=== PATIENT | female | born 1965 | race African-American/Black ===

== ENCOUNTER 2016-10-15 20:49 | Emergency (ER) | payer SELFPAY ==
[~2016-10-15] VITALS: Ht 175.3 cm; Wt 154.2 kg
[~2016-10-15 20:49] MED LIST: AMLO2.5T PO; AZIT250T PO; CRESTOR10 MG PO; LOSA25TA4 PO; PRED20TA PO; PROVENTIL HFA6.7 GM IH
--- NOTE | 2016-10-15 21:26 | ED.ADGEN ---
Past Medical History Past Medical History: Asthma, Hypertension Additional Past Medical Histor: GASTRITIS, Past Surgical History: Tubal ligation Alcohol Use: Rarely Drug Use: None Adult General Chief Complaint Chief Complaint: HYPERTENSION HPI HPI Patient is a 51 year old woman, with history of hypertension, who presents to the emergency department with complaint of fluctuating blood pressures, right- sided headache, cough, with vomiting today. Patient states that she stopped taking her blood pressure medication about a month ago, because "I was taking and taking it and it wasn't working". She states that her blood pressures measured at home today were 200s over 100s, blood pressure upon arrival to the ED initially was 209/99, repeat is 164/77. Patient states that her brother had a heart attack last week, which has made her concerned about her blood pressures , and prompted her to come to the ED today after she began experiencing a right- sided headache for the past several days. She states she has mild blurry vision associated with headache, although currently is resolved, the headache does come and go. Denies any focal weakness numbness or tingling, states that she's had coughing over the past several days with rhinorrhea, and did have several episodes of emesis today, denies any abdominal pain, any nausea, any chest pain or shortness of breath. States that she's noted increasing swelling in her lower extremities as well over the last month since she has stopped taking her medications. Denies any recent travel or surgery, any unilateral leg swelling, history of PE or DVT. Her primary care provider is Dr. Crews, who is not aware of her complaints were of her medication noncompliance. Review of Systems Review of Systems Constitutional: Denies fever or chills. [] Eyes: Denies change in visual acuity. [] HENT: Nasal congestion, no sore throat. [] Respiratory: Denies shortness of breath, complaining of cough. Cardiovascular: Denies chest pain or edema. [] GI: Denies abdominal pain, nausea, vomiting, bloody stools or diarrhea. [] : Denies dysuria. [] Musculoskeletal: Denies back pain or joint pain. [] Integument: Denies rash. [] Neurologic: Denies focal weakness or sensory changes. [] Right-sided headache associated mild blurry vision. Endocrine: Denies polyuria or polydipsia. [] Lymphatic: Denies swollen glands. [] Psychiatric: Denies depression or anxiety. [] Current Medications Current Medications Current Medications Medications (Trade) Dose Ordered Sig/Jorge Luis Start Time Stop Time Status Last Admin Dose Admin Acetaminophen (Tylenol) 650 mg 1X ONCE 10/15/16 21:45 10/15/16 21:46 DC 10/15/16 21:35 650 MG Allergies Allergies Allergies Coded Allergies Type Severity Reaction Last Updated Verified No Known Medication Allergies Allergy Unknown 03/07/14 No Physical Exam Physical Exam Constitutional: Well developed, well nourished, morbidly obese, non-toxic appearance. [] HENT: Normocephalic, atraumatic, bilateral external ears normal, oropharynx moist, no oral exudates, nose normal. [] Eyes: PERRLA, EOMI, conjunctiva normal, no discharge. [] Neck: Normal range of motion, no tenderness, supple, no stridor. [] Cardiovascular:Heart rate regular rhythm, no murmur, S1, S2, rubs or gallops. [] Lungs & Thorax: Bilateral breath sounds clear to auscultation, no wheezing, rhonchi, rales. No chest wall tenderness or crepitus. [] Abdomen: Bowel sounds normal, soft, obese, no tenderness, no masses, no pulsatile masses. [] Skin: Warm, dry, no erythema, no rash. [] Back: No tenderness, no CVA tenderness. [] Extremities: No tenderness, no cyanosis, no clubbing, ROM intact, 2+ pitting edema bilaterally. Neurologic: Alert and oriented X 3, normal motor function, normal sensory function, no focal deficits noted. [] Psychologic: Affect normal, judgement normal, mood normal. [] Current Patient Data Vital Signs Vital Signs Date Time Temp Pulse Resp B/P Pulse Ox O2 Delivery O2 Flow Rate FiO2 10/15/16 21:15 98.2 87 20 169/71 100 Room Air 98.2 Lab Values Laboratory Tests Test 10/15/16 21:40 10/15/16 22:05 Urine Collection Type Unknown Urine Color Yellow Urine Clarity Clear Urine pH 5.5 Urine Specific [place] 1.025 Urine Protein Negativemg/dL (NEG-TRACE) Urine Glucose (UA) Negativemg/dL (NEG) Urine Ketones (Stick) Negativemg/dL (NEG) Urine Blood Negative (NEG) Urine Nitrite Negative (NEG) Urine Bilirubin Negative (NEG) Urine Urobilinogen Dipstick 1.0mg/dL (0.2 mg/dL) Urine Leukocyte Esterase Negative (NEG) Urine RBC 0/HPF (0-2) Urine WBC Occ/HPF (0-4) Urine Squamous Epithelial Cells Mod/LPF Urine Bacteria Few/HPF (0-FEW) Urine Mucus Marked/LPF Urine Opiates Screen Neg (NEG) Urine Methadone Screen Neg (NEG) Urine Barbiturates Neg (NEG) Urine Phencyclidine Screen Neg (NEG) Urine Amphetamine/Methamphetamine Neg (NEG) Urine Benzodiazepines Screen Neg (NEG) Urine Cocaine Screen Neg (NEG) Urine Cannabinoids Screen Neg (NEG) Urine Ethyl Alcohol Neg (NEG) White Blood Count 7.1x10^3/uL (4.0-11.0) Red Blood Count 4.92x10^6/uL (3.50-5.40) Hemoglobin 13.2g/dL (12.0-15.5) Hematocrit 41.3% (36.0-47.0) Mean Corpuscular Volume 84fL (79-100) Mean Corpuscular Hemoglobin 27pg (25-35) Mean Corpuscular Hemoglobin Concent 32g/dL (31-37) Red Cell Distribution Width 14.7% (11.5-14.5) H Platelet Count 209x10^3/uL (140-400) Neutrophils (%) (Auto) 51% (31-73) Lymphocytes (%) (Auto) 40% (24-48) Monocytes (%) (Auto) 6% (0-9) Eosinophils (%) (Auto) 2% (0-3) Basophils (%) (Auto) 1% (0-3) Neutrophils # (Auto) 3.6x10^3uL (1.8-7.7) Lymphocytes # (Auto) 2.8x10^3/uL (1.0-4.8) Monocytes # (Auto) 0.4x10^3/uL (0.0-1.1) Eosinophils # (Auto) 0.2x10^3/uL (0.0-0.7) Basophils # (Auto) 0.1x10^3/uL (0.0-0.2) Sodium Level 143mmol/L (136-145) Potassium Level 3.9mmol/L (3.5-5.1) Chloride Level 105mmol/L (98-107) Carbon Dioxide Level 31mmol/L (21-32) Anion Gap 7 (6-14) Blood Urea Nitrogen 13mg/dL (7-20) Creatinine 1.0mg/dL (0.6-1.0) Estimated GFR (Cockcroft-Gault) 70.5 BUN/Creatinine Ratio 13 (6-20) Glucose Level 117mg/dL (70-99) H Calcium Level 8.9mg/dL (8.5-10.1) Total Bilirubin 0.2mg/dL (0.2-1.0) Aspartate Amino Transferase (AST) 14U/L (15-37) L Alanine Aminotransferase (ALT) 18U/L (14-59) Alkaline Phosphatase 98U/L (46-116) Troponin I Quantitative < 0.017ng/mL (0.000-0.055) SJ-Tkk-[id number]-Type Natriuretic Peptide 120pg/mL (0-124) Total Protein 7.9g/dL (6.4-8.2) Albumin 3.3g/dL (3.4-5.0) L Albumin/Globulin Ratio 0.7 (1.0-1.7) L Laboratory Tests 10/15/16 22:05 Laboratory Tests 10/15/16 22:05 EKG EKG EC: Sinus rhythm, heart rate 87 bpm, left axis deviation, QTC of 448, UT 166, QRS of 90, no ST elevations or depressions, contour abnormality is as stated with left axis deviation, otherwise abnormalities identified. Attempted to compare to previous ECG, however cardio room service food server is inaccessible at this time unable to compare prior. As interpreted by me. Radiology/Procedures Radiology/Procedures [] [facility] [address] [place] [address] IMAGING REPORT Signed PATIENT: MARGARITA WHITING ACCOUNT: [id number] : 1965 LOCATION: ER AGE: 51 SEX: F EXAM STATUS: REG ER ORD. PHYSICIAN: REN BOWMAN DO REASON: SIMPSON/HTN PROCEDURE: HEAD WO CONTRAST PROCEDURE CT head without contrast. HISTORY Right-sided headache and high blood pressure, cough and vomiting today TECHNIQUE Noncontrast CT imaging was performed of the head. Exposure: One or more of the following individualized dose reduction techniques were utilized for this exam: 1. Automated exposure control. 2. Adjustment of the mA and/or kV according to patient size. 3. Use of iterative reconstruction technique. COMPARISON 10/30/2015 FINDINGS No acute intracranial hemorrhage is identified. There is no intra-axial mass effect, midline shift, extra-axial fluid collection. Stevens-white differentiation of the major vascular territories is maintained. No acute calvarial abnormality is identified. Visualized paranasal sinuses and the mastoid air cells are aerated. IMPRESSION 1. No acute intracranial abnormality is identified. Electronically signed by: Mauro Bales MD (Oct 15, 2016 21:51:04) DICTATED and SIGNED BY: LUNA BALES MD DATE: 10/15/162150 CC: JOZEF CREWS MD; REN BOWMAN DO ~ Chest x-ray: Normal cardiopulmonary silhouette, no infiltrates, no effusions, no pneumothorax, no soft tissue or bony abnormalities identified. As interpreted by me. Course & Med Decision Making Course & Med Decision Making Pertinent Labs and Imaging studies reviewed. (See chart for details) Patient is denying any new or different symptoms at this time, she is more significant general evaluation after the recent health events affecting her brother, and with recurrence of her chronic headaches which she has previously been seen. Patient received Tylenol in the emergency department, on reevaluation states her headache is nearly fully resolved. CT of the head obtained, due to the patient's hypertensive report, and persistent symptoms, which was also unremarkable. Chest x-ray, ECG, and laboratory studies aside from mild hyperglycemia with glucose of 117 were all unremarkable. I did discuss these findings with patient, there is no indication there is acutely concerning process in place at this time, we had a lengthy discussion regarding the importance of taking medications on a regular basis to prevent development of serious medical conditions. Patient voices understanding, repeat blood pressures this time is 132/69, heart rate is in the 80s, oxygen saturation is 99 % on room air, respiratory rate is 18 and unlabored. Patient states that she'll be able to follow-up with her primary care provider next week, states that she does not feel the losartan which is previously he was beneficial her, therefore after discussion a prescription for hydrochlorothiazide 12.5 mg was written, to be started by the patient, and to be followed up on with her primary care provider in the next 5-7 days. We also discussed concerning symptoms that prompt return to the emergency department. Patient ambulating with difficulty in the ED, voiced understanding and agreement with plan, was discharged home in stable condition with plan as above. Dragon Disclaimer Dragon Disclaimer This electronic medical record was generated, in whole or in part, using a voice recognition dictation system. Departure Impression: Primary Impression: Hypertension Additional Impressions: Head ache Noncompliance with medications Disposition: HOME, SELF-CARE Condition: IMPROVED Scripts Hydrochlorothiazide (Hydrochlorothiazide Tablet)12.5 Mg Uymqxa89.5 Mg PO DAILY DIURETIC #20 TAB Ref 0 Prov:REN BOWMAN DO 10/15/16 Problem Qualifiers Primary Impression: Hypertension Hypertension type: unspecified secondary hypertension Qualified Code: I15.9 - Secondary hypertension, unspecified Additional Impressions: Head ache Headache type: unspecified Headache chronicity pattern: episodic headache Intractability: not intractable Qualified Code: R51 - Headache REN BOWMAN DO Oct 15, 2016 21:26
[2016-10-15] MEDS ORDERED: ACETAMINOPHEN 325 MG TABLET. PO ONE (21:45)
[2016-10-15 21:49] LABS: BILIRUBIN,URINE NEGATIVE (NEG); GLUCOSE,URINE NEGATIVE (NEG); NITRITE,URINE NEGATIVE (NEG); PH,URINE 5.5; PROTEIN,URINE NEGATIVE (NEG-TRACE)
--- NOTE | 2016-10-15 21:52 | RAD ---
PROCEDURE CT head without contrast. HISTORY Right-sided headache and high blood pressure, cough and vomiting today TECHNIQUE Noncontrast CT imaging was performed of the head. Exposure: One or more of the following individualized dose reduction techniques were utilized for this exam: 1. Automated exposure control. 2. Adjustment of the mA and/or kV according to patient size. 3. Use of iterative reconstruction technique. COMPARISON 10/30/2015 FINDINGS No acute intracranial hemorrhage is identified. There is no intra-axial mass effect, midline shift, extra-axial fluid collection. Stevens-white differentiation of the major vascular territories is maintained. No acute calvarial abnormality is identified. Visualized paranasal sinuses and the mastoid air cells are aerated. IMPRESSION 1. No acute intracranial abnormality is identified. Electronically signed by: Mauro Reeder MD (Oct 15, 2016 21:51:04)
[2016-10-15 21:55] LABS: BARBITURATES NEG (NEG); BENZODIAZEPINES NEG (NEG); CANNABINOIDS NEG (NEG); COCAINE NEG (NEG); ETHANOL, URINE NEG (NEG); METHADONE NEG (NEG); OPIATES NEG (NEG); PHENCYCLIDINE NEG (NEG)
[2016-10-15 21:59] LABS: BACTERIA,URINE FEW /HPF (0-FEW); RBC,URINE 0 /HPF (0-2); SQUAMOUS EPITHELIAL CELL,UR MOD /LPF; WBC,URINE OCC /HPF (0-4)
[2016-10-15 22:18] LABS: BASO # 0.1 x10^3/uL (0.0-0.2); BASO % 1 % (0-3); EOS % 2 % (0-3); HEMATOCRIT 41.3 % (36.0-47.0); HEMOGLOBIN 13.2 g/dL (12.0-15.5); LYMPH # 2.8 x10^3/uL (1.0-4.8); LYMPH % 40 % (24-48); MEAN CORPUSCULAR HEMOGLOBIN 27 pg (25-35); MEAN CORPUSCULAR HGB CONC 32 g/dL (31-37); MEAN CORPUSCULAR VOLUME 84 fL (79-100); MONO % 6 % (0-9); NEUT % 51 % (31-73); PLATELET COUNT 209 x10^3/uL (140-400); RED BLOOD COUNT 4.92 x10^6/uL (3.50-5.40); RED CELL DISTRIBUTION WIDTH 14.7 % (11.5-14.5); WHITE BLOOD COUNT 7.1 x10^3/uL (4.0-11.0)
[2016-10-15 22:34] LABS: CALCIUM 8.9 mg/dL (8.5-10.1); GFR 70.5; POTASSIUM 3.9 mmol/L (3.5-5.1)
[2016-10-15 22:36] VITALS: BP 132/72
[2016-10-15 22:40] LABS: ALBUMIN 3.3 g/dL (3.4-5.0); ALBUMIN/GLOBULIN RATIO 0.7 (1.0-1.7); TOTAL BILIRUBIN 0.2 mg/dL (0.2-1.0); TOTAL PROTEIN 7.9 g/dL (6.4-8.2)
[2016-10-15] MEDS ORDERED: HYDR12.58 PO (22:46)
--- NOTE | 2016-10-16 11:49 | RAD ---
AP portable chest radiograph 10/15/2016 Clinical History: Cough and hypotension. An AP portable erect digital radiograph of the chest was obtained. Comparison study is dated 05/06/2016. The cardiac silhouette is borderline enlarged. The thoracic aorta is mildly tortuous. No acute pulmonary infiltrate is seen. No pleural effusion or pneumothorax is noted. Mild degenerative changes are seen involving the thoracic spine and both shoulders. Impression: No acute abnormality is seen.
--- NOTE | 2016-10-16 14:52 | EKG ---
[facility] [address] [place] [address] Test Date: 2016-10-15 Test Time: 21:34:09 Pat Name: MARGARITA WHITING Department: Room: Gender: F Blanket Weaver: : 1965 Requested By: REN BOWMAN Order Number: [id number] Reading MD: Measurements Intervals [place] Rate: 87 P: 59 TX: 156 QRS: -11 QRSD: 90 T: 14 QT: 372 QTc: 448 Interpretive Statements SINUS RHYTHM LEFTWARD AXIS NO SPECIFIC ECG ABNORMALITIES RI6.01 No previous ECG available for comparison
== END 2016-10-15 22:53 | disposition home or self-care (01) ==
LOC: ER 20:49
DX: I15.9 Secondary hypertension, unspecified (principal); R51 Headache; R05 Cough; J45.909 Unspecified asthma, uncomplicated; Z91.14 Patient's other noncompliance with medication regimen; Z98.51 Tubal ligation status
CPT/HCPCS: 36415; 70450; 71010; 80053; 81001; 83880; 84484; 85027; 93005; 99285; G0481

== ENCOUNTER 2017-02-20 00:34 | Inpatient (IN) | payer SELFPAY ==
[~2017-02-20] VITALS: Ht 172.7 cm; Wt 170.1 kg
[~2017-02-20 00:34] MED LIST changes: +HYDR12.58 PO
[2017-02-20 01:02] LABS: BILIRUBIN,URINE NEGATIVE (NEG); GLUCOSE,URINE >=1000 mg/dL (NEG); NITRITE,URINE NEGATIVE (NEG); PH,URINE 5.5; PROTEIN,URINE NEGATIVE (NEG-TRACE)
[2017-02-20 01:07] LABS: BACTERIA,URINE FEW /HPF (0-FEW); RBC,URINE 0 /HPF (0-2); SQUAMOUS EPITHELIAL CELL,UR FEW /LPF; WBC,URINE OCC /HPF (0-4)
[2017-02-20] MEDS ORDERED: IV NORMAL SALINE 1000ML BAG 1,000 ML IV ONE (01:15)
--- NOTE | 2017-02-20 01:54 | PHYS DOC ---
Past Medical History Past Medical History: Asthma, Hypertension Additional Past Medical Histor: GASTRITIS Past Surgical History: Hysterectomy, Tubal ligation Alcohol Use: Rarely Drug Use: None Adult General Chief Complaint Chief Complaint: HYPERGLYCEMIA HPI HPI Patient is a 51 year old F who presents with elevated blood sugars. Patient is an obese female with no known history of diabetes however over the past month has had increased thirst and one of her friends is diabetic therefore she checked her blood sugars tonight which were reading 400. Patient came the emergency room for further evaluation. Patient describes some blurry vision and numbness and tingling all over. Patient declines any nausea/vomiting/diarrhea or abdominal pain. Patient denies any fevers. Patient denies any chest pain or shortness of breath. Pertinent exam findings: Heart was regular rate and rhythm without murmurs Lungs are clear to auscultation bilaterally without crackles wheeze or rales Abdomen was soft nontender bowel sounds heard all 4 quadrants ED course: Patient was seen and evaluated CBC, CMP, 1 L normal saline ordered 0228: Discussed lab results the patient and updated on the plan to admit for treatment of new onset diabetes and diabetic education Pertinent results: Glucose level was 375 MDM: After reviewing the chart, CC/HPI/PMH, physical exam, [lab results], do not believe the patient is in acute DKA however has new onset diabetes and will be admitted for diabetic education and further management of her blood sugars. Review of Systems Review of Systems GEN: Elevate her blood sugars HEENT: Blurry vision CV: Denies chest pain RESP: Denies shortness of air, cough GI: Denies n/v/d NEURO: Numbness and tingling MSK: Denies weakness, joint pain/swelling Current Medications Current Medications Current Medications Medications (Trade) Dose Ordered Sig/Jorge Luis Start Time Stop Time Status Last Admin Dose Admin Sodium Chloride 1,000 ml @ 1,000 mls/hr 1X ONCE 02/20/17 01:15 02/20/17 02:14 DC 02/20/17 01:14 1,000 MLS/HR Allergies Allergies Allergies Coded Allergies Type Severity Reaction Last Updated Verified No Known Medication Allergies Allergy Unknown 03/07/14 No Physical Exam Physical Exam GEN.: No apparent distress. Alert and oriented. HEENT: Head is normocephalic, atraumatic NECK: Supple. LUNGS: CTAB. HEART: RRR, S1, S2 present. Peripheral pulses intact ABDOMEN: Soft, nontender. Positive bowel sounds. EXTREMITIES: Without any cyanosis. NEUROLOGIC: Normal speech, normal tone PSYCHIATRIC: Normal affect, normal mood. SKIN: No ulcerations Current Patient Data Vital Signs Vital Signs Date Time Temp Pulse Resp B/P (MAP) Pulse Ox O2 Delivery O2 Flow Rate FiO2 02/20/17 00:50 98.3 94 22 146/80 (102) 97 Room Air 98.3 Lab Values Laboratory Tests Test 02/20/17 00:41 02/20/17 00:45 02/20/17 02:02 Urine Collection Type Unknown Urine Color Yellow Urine Clarity Clear Urine pH 5.5 Urine Specific [place] >=1.030 Urine Protein Negative mg/dL (NEG-TRACE) Urine Glucose (UA) >=1000 mg/dL (NEG) Urine Ketones (Stick) Negative mg/dL (NEG) Urine Blood Negative (NEG) Urine Nitrite Negative (NEG) Urine Bilirubin Negative (NEG) Urine Urobilinogen Dipstick 1.0 mg/dL (0.2 mg/dL) Urine Leukocyte Esterase Negative (NEG) Urine RBC 0 /HPF (0-2) Urine WBC Occ /HPF (0-4) Urine Squamous Epithelial Cells Few /LPF Urine Bacteria Few /HPF (0-FEW) Urine Mucus Slight /LPF Glucose (Fingerstick) 396 mg/dL (70-99) H White Blood Count 6.8 x10^3/uL (4.0-11.0) Red Blood Count 4.54 x10^6/uL (3.50-5.40) Hemoglobin 12.7 g/dL (12.0-15.5) Hematocrit 37.9 % (36.0-47.0) Mean Corpuscular Volume 84 fL (79-100) Mean Corpuscular Hemoglobin 28 pg (25-35) Mean Corpuscular Hemoglobin Concent 34 g/dL (31-37) Red Cell Distribution Width 14.8 % (11.5-14.5) H Platelet Count 179 x10^3/uL (140-400) Neutrophils (%) (Auto) 49 % (31-73) Lymphocytes (%) (Auto) 42 % (24-48) Monocytes (%) (Auto) 6 % (0-9) Eosinophils (%) (Auto) 3 % (0-3) Basophils (%) (Auto) 1 % (0-3) Neutrophils # (Auto) 3.3 x10^3uL (1.8-7.7) Lymphocytes # (Auto) 2.8 x10^3/uL (1.0-4.8) Monocytes # (Auto) 0.4 x10^3/uL (0.0-1.1) Eosinophils # (Auto) 0.2 x10^3/uL (0.0-0.7) Basophils # (Auto) 0.1 x10^3/uL (0.0-0.2) Sodium Level 137 mmol/L (136-145) Potassium Level 3.6 mmol/L (3.5-5.1) Chloride Level 103 mmol/L (98-107) Carbon Dioxide Level 28 mmol/L (21-32) Anion Gap 6 (6-14) Blood Urea Nitrogen 11 mg/dL (7-20) Creatinine 0.9 mg/dL (0.6-1.0) Estimated GFR (Cockcroft-Gault) 79.6 BUN/Creatinine Ratio 12 (6-20) Glucose Level 375 mg/dL (70-99) H Calcium Level 8.7 mg/dL (8.5-10.1) Total Bilirubin 0.3 mg/dL (0.2-1.0) Aspartate Amino Transferase (AST) 12 U/L (15-37) L Alanine Aminotransferase (ALT) 17 U/L (14-59) Alkaline Phosphatase 119 U/L (46-116) H Total Protein 7.2 g/dL (6.4-8.2) Albumin 3.1 g/dL (3.4-5.0) L Albumin/Globulin Ratio 0.8 (1.0-1.7) L Lipase 135 U/L (73-393) Laboratory Tests 02/20/17 02:02 Laboratory Tests 02/20/17 02:02 EKG EKG [] Radiology/Procedures Radiology/Procedures [] Course & Med Decision Making Course & Med Decision Making Pertinent Labs and Imaging studies reviewed. (See chart for details) [] Dragon Disclaimer Dragon Disclaimer This electronic medical record was generated, in whole or in part, using a voice recognition dictation system. Departure Departure Impression: Primary Impression: Hyperglycemia Disposition: ADMITTED INPATIENT Admitting Physician: Shimon Borrego Condition: STABLE Referrals: JOZEF CROOKS MD (PCP) JANIYA GANN DO Feb 20, 2017 01:54
[2017-02-20 02:12] LABS: BASO # 0.1 x10^3/uL (0.0-0.2); BASO % 1 % (0-3); EOS % 3 % (0-3); HEMATOCRIT 37.9 % (36.0-47.0); HEMOGLOBIN 12.7 g/dL (12.0-15.5); LYMPH # 2.8 x10^3/uL (1.0-4.8); LYMPH % 42 % (24-48); MEAN CORPUSCULAR HEMOGLOBIN 28 pg (25-35); MEAN CORPUSCULAR HGB CONC 34 g/dL (31-37); MEAN CORPUSCULAR VOLUME 84 fL (79-100); MONO % 6 % (0-9); NEUT % 49 % (31-73); PLATELET COUNT 179 x10^3/uL (140-400); RED BLOOD COUNT 4.54 x10^6/uL (3.50-5.40); RED CELL DISTRIBUTION WIDTH 14.8 % (11.5-14.5); WHITE BLOOD COUNT 6.8 x10^3/uL (4.0-11.0)
[2017-02-20 02:21] LABS: CALCIUM 8.7 mg/dL (8.5-10.1); CREATININE 0.9 mg/dL (0.6-1.0); GFR 79.6; POTASSIUM 3.6 mmol/L (3.5-5.1)
[2017-02-20 02:26] LABS: ALBUMIN 3.1 g/dL (3.4-5.0); ALBUMIN/GLOBULIN RATIO 0.8 (1.0-1.7); TOTAL BILIRUBIN 0.3 mg/dL (0.2-1.0); TOTAL PROTEIN 7.2 g/dL (6.4-8.2)
[2017-02-20] MEDS: IV NORMAL SALINE 1000ML BAG 1,000 ML IV SCH ×3 (02:28→20:09)
[2017-02-20] MEDS ORDERED: ONDANSETRON PF 4 MG/2 ML VIAL. IV PRN (02:30)
[2017-02-20] MEDS ORDERED: ACETAMINOPHEN 325 MG TABLET. PO PRN (02:30)
[2017-02-20 05:52] VITALS: BP 118/78
--- NOTE | 2017-02-20 06:48 | ACF ---
Admission Forms Criteria DIABETES Clinical Indications for Admission to Inpatient Care (Place 'X' for any and all applicable criteria): Admission is indicated by presence of ALL (if I & II) or ANY ONE (if III or IV) of the following (1)(2)(3)(4): [ ]I. Diabetes is uncontrolled as indicated by ANY ONE of the following: [ ]a) Diabetic ketoacidosis as indicated by ALL of the following (8): [ ]i) Hyperglycemia (eg, plasma glucose greater than 200 mg/ dL (11.1 mmol/L)) [ ]ii) Acidosis (eg, arterial pH less than 7.30, serum bicarbonate level less than 15 mEq/L (mmol/L)) [ ]iii) Moderate ketonuria or ketonemia [ ]b) Hyperglycemic hyperosmolar state as indicated by ALL of the following(9)(10): [ ]i) Neurologic dysfunction (eg, stupor, coma, hemiparesis , seizure)(13) [ ]ii) Plasma glucose greater than 600 mg/dL (33.3 mmol/L) [ ]iii) Serum osmolality greater than 320 mOsm/kg (mmol/kg) [ ]c) Severe signs or symptoms secondary to hyperglycemia indicated by ANY ONE of the following: [ ]i) Altered mental status(10) [ ]ii) Significant hypovolemia or dehydration [ ]iii) Intractable nausea or vomiting [ ]iv) Unexplained fever or severe infection [ ]v) Severe electrolyte abnormality (eg, hypokalemia, hyperkalemia, hypernatremia) [ ]II. Management at other levels of care (Also use Diabetes: Observation Care as appropriate) is not feasible because of ANY ONE of the following: [ ]a) Condition was not adequately corrected with treatment at other levels of care. [ ]b) Treatment at other levels of care is not appropriate because of condition severity (eg, hyperosmolar coma). [X]III. Contraindications and/or Inappropriate clinical situations for Observational Care in patients with Diabetes, when ANY ONE of the following is required: [X]a) Patient require specific diagnostic workup or therapeutic intervention 22 [ ]b) Patient with abnormal vital signs or altered mental status 23 [ ]IV. General contraindications and/or Inappropriate clinical situations for Observational Care in patients with Diabetes, when ANY ONE of the following is required: [ ]a) Prediction of prolongation of LOS based on ANY ONE of the following may be considered as a contraindication for observational care 2, 3, 4, 5, 6, 7, 8, 9, 10, 11 [ ]i) Age > 65 yrs. [ ]ii) Patient arriving by ambulance [ ]iii) Patient with high acuity [ ]iv) Patient requiring vital sign monitoring [ ]v) Patient on IV medication [ ]b) Systolic blood pressures 180mmHg 3,12 [ ]c) Patient with altered mental status including delirium and other alteration of consciousness, (3) [ ]d) Patient whose discharge disposition will be to a half-way home or rehabilitation home should not be managed in Emergency Department Observation Unit. CMS rule requires 3 days hospital stay before such placement.3,13 [ ]e) Patient with failure to thrive due to broad array of etiologies 3,16,17 [ ]f) Inability to ambulate 3,14 Extended stay beyond goal length of stay may be needed for(3)(20): [ ]a) Treatment of precipitating causes [ ]b) Development of hypoglycemia [ ]c) Complications of treatment [ ]d) Complications of decompensated diabetes (eg, acute gastric dilatation, persistent metabolic or neurologic derangement) [ ]e) Active Comorbidities [ ]f) Older patients( 65 years or older) The original [employer] content created by [employer] has been revised. The portions of the content which have been revised are identified through the use of italic text or in bold,and [facility] has neither reviewed nor approved the modified material. All other unmodified content is copyright [facility]. Please see references footnoted in the original [facility] edition 2015 Admission Criteria Met?: Yes KIKI RAM Feb 20, 2017 06:48
[2017-02-20 07:40] VITALS: BP 149/78
[2017-02-20] MEDS ORDERED: DEXTROSE 50% 25 GM / 50ML DISP.SYRIN. IV PRN (09:15)
[2017-02-20] MEDS ORDERED: INSULIN ASPART 300 UNITS/3 ML INSULN.PEN SQ ONE ×2 (09:30→22:00)
[2017-02-20] MEDS ORDERED: ALBUTEROL SULFATE 2.5 MG/3 ML NEBU. NEB PRN (10:00)
[2017-02-20] MEDS ORDERED: NON FORMULARY ITEM (Albuterol Sulfate (Proventil Hfa Inhaler) 1 PUFF) IH PRN (10:00)
[2017-02-20] MEDS: hydroCHLOROthiazide 12.5 MG CAPSULE PO SCH (10:25)
[2017-02-20] MEDS: amLODIPine BESYLATE 2.5 MG TABLET PO SCH (10:25)
[2017-02-20] MEDS: LOSARTAN POTASSIUM 25 MG TABLET. PO SCH (10:26)
[2017-02-20 11:09] VITALS: BP 138/70
--- NOTE | 2017-02-20 11:25 | PDOC1 ---
History and Physical Past Medical History Cardiovascular: HTN Pulmonary: COPD CENTRAL NERVOUS SYSTEM: Other GI: GERD Heme/Onc: Cancer Hepatobiliary: No pertinent hx Psych: No pertinent hx Rheumatologic: No pertinent hx Infectious disease: No pertinent hx Renal/: No pertinent hx Endocrine: No pertinent hx Past Surgical History Past Surgical History: Tubal Ligation, Hysterectomy Family History Family History: Coronary Artery Disease Social History ALCOHOL: none Drugs: None Current Problem List Problem List Problems Medical Problems: (1) Hyperglycemia Status: Acute Current Medications Current Medications Current Medications Medications (Trade) Dose Ordered Sig/Jorge Luis Start Time Stop Time Status Last Admin Dose Admin Acetaminophen (Tylenol) 650 mg PRN Q4HRS PRN 02/20/17 02:30 02/21/17 02:29 Albuterol Sulfate (Ventolin Neb Soln) 2.5 mg PRN Q4HRS PRN 02/20/17 10:00 Amlodipine Besylate (Norvasc) 2.5 mg DAILY 02/20/17 10:30 02/20/17 10:25 2.5 MG Dextrose (Dextrose 50%-Water Syringe) 12.5 gm PRN Q15MIN PRN 02/20/17 09:15 Hydrochlorothiazide (Microzide) 12.5 mg DAILY 02/20/17 10:30 02/20/17 10:25 12.5 MG Insulin Aspart (NovoLOG) 9 units 1X ONCE 02/20/17 09:30 02/20/17 09:31 DC 02/20/17 10:32 9 UNITS Losartan Potassium (Cozaar) 25 mg DAILY 02/20/17 10:30 02/20/17 10:26 25 MG Non-Formulary Medication 1 puff PRN Q4HRS PRN 02/20/17 10:00 UNV Ondansetron HCl (Zofran) 4 mg PRN Q8HRS PRN 02/20/17 02:30 02/21/17 02:29 Sodium Chloride 1,000 ml @ 125 mls/hr Q8H 02/20/17 02:28 02/21/17 02:27 02/20/17 10:33 125 MLS/HR Allergies Allergies Allergies Coded Allergies Type Severity Reaction Last Updated Verified No Known Medication Allergies Allergy Unknown 03/07/14 No ROS Review of System CONSTITUTIONAL: No fever or chills EYES: No recent changes SKIN: No rash or itching CARDIOVASCULAR: No chest pain, syncope, palpitations, or edema RESPIRATORY: No SOB or cough GASTROINTESTINAL: No nausea, vomiting or abdominal pain NEUROLOGICAL: No headaches or weakness ENDOCRINE: No cold or heat intolerance GENITOURINARY: No urgency or frequency of urination MUSCULOSKELETAL: No back pain or joint pain LYMPHATICS: No enlarged lymph nodes PSYCHIATRIC: No anxiety or depression Physical Exam Physical Exam GEN.: No apparent distress. Alert and oriented. HEENT: Head is normocephalic, atraumatic NECK: Supple. LUNGS: Clear to auscultation. HEART: RRR, S1, S2 present. Peripheral pulses intact ABDOMEN: Soft, nontender. Positive bowel sounds. EXTREMITIES: Without any cyanosis. NEUROLOGIC: Normal speech, normal tone PSYCHIATRIC: Normal affect, normal mood. SKIN: No ulcerations Vitals Vitals Vital Signs Date Time Temp Pulse Resp B/P (MAP) Pulse Ox O2 Delivery O2 Flow Rate FiO2 02/20/17 10:26 89 149/78 02/20/17 07:40 97.7 22 93 Room Air 97.7 Labs Labs Laboratory Tests Test 02/20/17 00:41 02/20/17 00:45 02/20/17 02:02 02/20/17 02:29 Urine Collection Type Unknown Urine Color Yellow Urine Clarity Clear Urine pH 5.5 Urine Specific [place] >=1.030 Urine Protein Negative mg/dL (NEG-TRACE) Urine Glucose (UA) >=1000 mg/dL (NEG) Urine Ketones (Stick) Negative mg/dL (NEG) Urine Blood Negative (NEG) Urine Nitrite Negative (NEG) Urine Bilirubin Negative (NEG) Urine Urobilinogen Dipstick 1.0 mg/dL (0.2 mg/dL) Urine Leukocyte Esterase Negative (NEG) Urine RBC 0 /HPF (0-2) Urine WBC Occ /HPF (0-4) Urine Squamous Epithelial Cells Few /LPF Urine Bacteria Few /HPF (0-FEW) Urine Mucus Slight /LPF Glucose (Fingerstick) 396 mg/dL (70-99) 350 mg/dL (70-99) White Blood Count 6.8 x10^3/uL (4.0-11.0) Red Blood Count 4.54 x10^6/uL (3.50-5.40) Hemoglobin 12.7 g/dL (12.0-15.5) Hematocrit 37.9 % (36.0-47.0) Mean Corpuscular Volume 84 fL (79-100) Mean Corpuscular Hemoglobin 28 pg (25-35) Mean Corpuscular Hemoglobin Concent 34 g/dL (31-37) Red Cell Distribution Width 14.8 % (11.5-14.5) Platelet Count 179 x10^3/uL (140-400) Neutrophils (%) (Auto) 49 % (31-73) Lymphocytes (%) (Auto) 42 % (24-48) Monocytes (%) (Auto) 6 % (0-9) Eosinophils (%) (Auto) 3 % (0-3) Basophils (%) (Auto) 1 % (0-3) Neutrophils # (Auto) 3.3 x10^3uL (1.8-7.7) Lymphocytes # (Auto) 2.8 x10^3/uL (1.0-4.8) Monocytes # (Auto) 0.4 x10^3/uL (0.0-1.1) Eosinophils # (Auto) 0.2 x10^3/uL (0.0-0.7) Basophils # (Auto) 0.1 x10^3/uL (0.0-0.2) Sodium Level 137 mmol/L (136-145) Potassium Level 3.6 mmol/L (3.5-5.1) Chloride Level 103 mmol/L (98-107) Carbon Dioxide Level 28 mmol/L (21-32) Anion Gap 6 (6-14) Blood Urea Nitrogen 11 mg/dL (7-20) Creatinine 0.9 mg/dL (0.6-1.0) Estimated GFR (Cockcroft-Gault) 79.6 BUN/Creatinine Ratio 12 (6-20) Glucose Level 375 mg/dL (70-99) Calcium Level 8.7 mg/dL (8.5-10.1) Total Bilirubin 0.3 mg/dL (0.2-1.0) Aspartate Amino Transf (AST/SGOT) 12 U/L (15-37) Alanine Aminotransferase (ALT/SGPT) 17 U/L (14-59) Alkaline Phosphatase 119 U/L (46-116) Total Protein 7.2 g/dL (6.4-8.2) Albumin 3.1 g/dL (3.4-5.0) Albumin/Globulin Ratio 0.8 (1.0-1.7) Lipase 135 U/L (73-393) Test 02/20/17 07:38 02/20/17 11:12 Glucose (Fingerstick) 329 mg/dL (70-99) 357 mg/dL (70-99) Laboratory Tests Test 02/20/17 00:41 02/20/17 00:45 02/20/17 02:02 02/20/17 02:29 Urine Collection Type Unknown Urine Color Yellow Urine Clarity Clear Urine pH 5.5 Urine Specific [place] >=1.030 Urine Protein Negative mg/dL (NEG-TRACE) Urine Glucose (UA) >=1000 mg/dL (NEG) Urine Ketones (Stick) Negative mg/dL (NEG) Urine Blood Negative (NEG) Urine Nitrite Negative (NEG) Urine Bilirubin Negative (NEG) Urine Urobilinogen Dipstick 1.0 mg/dL (0.2 mg/dL) Urine Leukocyte Esterase Negative (NEG) Urine RBC 0 /HPF (0-2) Urine WBC Occ /HPF (0-4) Urine Squamous Epithelial Cells Few /LPF Urine Bacteria Few /HPF (0-FEW) Urine Mucus Slight /LPF Glucose (Fingerstick) 396 mg/dL (70-99) 350 mg/dL (70-99) White Blood Count 6.8 x10^3/uL (4.0-11.0) Red Blood Count 4.54 x10^6/uL (3.50-5.40) Hemoglobin 12.7 g/dL (12.0-15.5) Hematocrit 37.9 % (36.0-47.0) Mean Corpuscular Volume 84 fL (79-100) Mean Corpuscular Hemoglobin 28 pg (25-35) Mean Corpuscular Hemoglobin Concent 34 g/dL (31-37) Red Cell Distribution Width 14.8 % (11.5-14.5) Platelet Count 179 x10^3/uL (140-400) Neutrophils (%) (Auto) 49 % (31-73) Lymphocytes (%) (Auto) 42 % (24-48) Monocytes (%) (Auto) 6 % (0-9) Eosinophils (%) (Auto) 3 % (0-3) Basophils (%) (Auto) 1 % (0-3) Neutrophils # (Auto) 3.3 x10^3uL (1.8-7.7) Lymphocytes # (Auto) 2.8 x10^3/uL (1.0-4.8) Monocytes # (Auto) 0.4 x10^3/uL (0.0-1.1) Eosinophils # (Auto) 0.2 x10^3/uL (0.0-0.7) Basophils # (Auto) 0.1 x10^3/uL (0.0-0.2) Sodium Level 137 mmol/L (136-145) Potassium Level 3.6 mmol/L (3.5-5.1) Chloride Level 103 mmol/L (98-107) Carbon Dioxide Level 28 mmol/L (21-32) Anion Gap 6 (6-14) Blood Urea Nitrogen 11 mg/dL (7-20) Creatinine 0.9 mg/dL (0.6-1.0) Estimated GFR (Cockcroft-Gault) 79.6 BUN/Creatinine Ratio 12 (6-20) Glucose Level 375 mg/dL (70-99) Calcium Level 8.7 mg/dL (8.5-10.1) Total Bilirubin 0.3 mg/dL (0.2-1.0) Aspartate Amino Transf (AST/SGOT) 12 U/L (15-37) Alanine Aminotransferase (ALT/SGPT) 17 U/L (14-59) Alkaline Phosphatase 119 U/L (46-116) Total Protein 7.2 g/dL (6.4-8.2) Albumin 3.1 g/dL (3.4-5.0) Albumin/Globulin Ratio 0.8 (1.0-1.7) Lipase 135 U/L (73-393) Test 02/20/17 07:38 02/20/17 11:12 Glucose (Fingerstick) 329 mg/dL (70-99) 357 mg/dL (70-99) VTE Prophylaxis Ordered VTE Prophylaxis Devices: No VTE Pharmacological Prophylaxi: No TANNER BYERS MD Feb 20, 2017 11:25
[2017-02-20] MEDS: INSULIN ASPART 300 UNITS/3 ML INSULN.PEN SQ SCH ×4 (12:24→17:05)
--- NOTE | 2017-02-20 13:33 | HP ---
ADMIT DATE: 02/20/2017 CHIEF COMPLAINT: Hyperglycemia. HISTORY OF PRESENT ILLNESS: A 51-year-old -[place] female patient with prior history of asthma and hypertension who presented to the ER with complaints of increased frequency of urination and thirsty for nearly 1 month. The patient's friend advised her to get blood checked. She checked her blood glucose at home which showed more than 400 blood sugars. The patient presented to the ER with increased thirst and blurring of vision and tingling allover. She denies any nausea, vomiting, abdominal pain, or shortness of breath. Her initial blood sugars on arrival to the ER showed 396. She received insulin in the ER. This morning, the patient is resting comfortably. Denies any symptoms. PAST MEDICAL HISTORY: Asthma, hypertension, and gastritis. PAST SURGICAL HISTORY: Hysterectomy and tubal ligation. PERSONAL HISTORY: No smoking, no alcohol, no drug abuse. FAMILY HISTORY: No diabetes. IMMUNIZATIONS: NKDA. REVIEW OF SYSTEMS: Please see my electronic H and P. PHYSICAL EXAMINATION: Please see my electronic H and P. MEDICATIONS: Reviewed and reconciled. Please see MRAD. LABORATORY FINDINGS: Chemistry: Sodium 137, potassium 3.6, chloride 103, carbon dioxide 28, gap is 6, creatinine is 0.9, and blood sugar 396. AST of 12, ALT 17, and lipase is 135. Hematology: WBC is 6.8, hemoglobin is 12.7, MCV is 84, and platelets 179. Urine specific gravity more than 1.030, glucose more than 1000, ketones negative, and nitrites negative. IMAGING STUDIES: Not done. ASSESSMENT AND PLAN: 1. Suspected type 2 diabetes mellitus with hyperglycemia. 2. Hypertension. 3. Morbid obesity with a body mass index of 57. 5. History of asthma. PLAN: 1. Currently, the patient has been placed on sliding scale insulin with a.c. and at bedtime, and I will order Lantus or Levemir 10 units at bedtime. We will check her hemoglobin A1c. Based on that, we will resume her home medications. Based on that, she will go home with either insulin or oral diabetic medications. 2. Her blood pressure has been controlled with hydrochlorothiazide, losartan, and amlodipine. 3. Continue IV hydration with normal saline. 4. Periodic nebulizations. The patient has been educated about weight reduction. TANNER BYERS MD DR: Daniel JOB#: [id number] / [id number]
[2017-02-20] MEDS ORDERED: METHYL SALICYLATE/MENTHOL TOPICAL OINTMENT 29GM TUBE. TP PRN (15:00)
[2017-02-20 15:30] VITALS: BP 140/74
[2017-02-20 19:00] VITALS: BP 148/49
[2017-02-20] MEDS ORDERED: INSULIN DETEMIR 300 UNITS/3 ML INSULN.PEN. SQ SCH (21:00)
[2017-02-20 23:00] VITALS: BP 126/53
[2017-02-21 03:00] VITALS: BP 133/71
[2017-02-21 04:32] LABS: BASO % 1 % (0-3); EOS % 3 % (0-3); HEMATOCRIT 37.9 % (36.0-47.0); HEMOGLOBIN 12.3 g/dL (12.0-15.5); LYMPH # 2.7 x10^3/uL (1.0-4.8); LYMPH % 43 % (24-48); MEAN CORPUSCULAR HEMOGLOBIN 28 pg (25-35); MEAN CORPUSCULAR HGB CONC 32 g/dL (31-37); MEAN CORPUSCULAR VOLUME 85 fL (79-100); MONO % 7 % (0-9); NEUT % 47 % (31-73); PLATELET COUNT 181 x10^3/uL (140-400); RED BLOOD COUNT 4.45 x10^6/uL (3.50-5.40); RED CELL DISTRIBUTION WIDTH 14.8 % (11.5-14.5); WHITE BLOOD COUNT 6.3 x10^3/uL (4.0-11.0)
[2017-02-21 05:05] LABS: CALCIUM 8.5 mg/dL (8.5-10.1); CREATININE 0.8 mg/dL (0.6-1.0); GFR 91.1; POTASSIUM 3.6 mmol/L (3.5-5.1)
[2017-02-21 07:29] VITALS: BP 151/80
[2017-02-21] MEDS: hydroCHLOROthiazide 12.5 MG CAPSULE PO SCH (08:52)
[2017-02-21] MEDS: amLODIPine BESYLATE 2.5 MG TABLET PO SCH (08:53)
[2017-02-21] MEDS: LOSARTAN POTASSIUM 25 MG TABLET. PO SCH (08:54)
[2017-02-21] MEDS: INSULIN ASPART 300 UNITS/3 ML INSULN.PEN SQ SCH ×4 (09:02→13:02)
[2017-02-21 10:31] VITALS: BP 130/59
[2017-02-21] MEDS ORDERED: BLOO-1207 MC (11:53)
[2017-02-21] MEDS ORDERED: METF500T PO (11:53)
[2017-02-21] MEDS ORDERED: INSU100I13 SQ (11:53)
[2017-02-21 14:54] VITALS: BP 130/71
== END 2017-02-21 16:42 | disposition home or self-care (01) | DRG 638 ==
LOC: ER 00:34 → 4 NORTH 02:30
PROVIDERS: ADMIT Internal Medicine; ATTEND Internal Medicine
DX: E11.65 Type 2 diabetes mellitus with hyperglycemia (principal); Z68.43 Body mass index [BMI] 50.0-59.9, adult; I10 Essential (primary) hypertension; J44.9 Chronic obstructive pulmonary disease, unspecified; H53.8 Other visual disturbances; E66.01 Morbid (severe) obesity due to excess calories; K21.9 Gastro-esophageal reflux disease without esophagitis; Z82.49 Family history of ischemic heart disease and other diseases of the circulatory system; Z90.710 Acquired absence of both cervix and uterus; Z98.51 Tubal ligation status
CPT/HCPCS: 36415; 80048; 80053; 81001; 82962; 83036; 83690; 85027; 94250; 94640; 94760; 96360; J1815; J7030; 99285-25